=== PATIENT | male | born 1975 | race Caucasian/White ===

== ENCOUNTER 2021-09-18 06:33 | Outpatient (CLI) | payer BC, OTHER, SELFPAY ==
--- NOTE | 2021-09-18 06:48 | CT_ITS ---
STUDY: CT MAXILLOFACIAL SINUSES REASON FOR EXAM: Male, 46 years old. CHRONIC SINUSITIS RADIATION DOSAGE (If Supplied By Facility): CTDIvol = ( 33.06 ) mGy, DLP = ( 788.4 ) mGycm TECHNIQUE: The patient was scanned in a multi detector CT scanner. High resolution axial imaging was performed without the administration of intravenous contrast material. Sagittal and coronal images were reconstructed. Individualized dose optimization techniques were used for this CT. COMPARISON: None. FINDINGS: FRONTAL SINUSES: Normal aeration, without mucosal inflammatory disease. ETHMOIDAL SINUSES: Normal aeration, without mucosal inflammatory disease. MAXILLARY SINUSES: Mucosal thickening in the seth of the left maxillary sinus consistent with chronic sinusitis. SPHENOIDAL SINUSES: Normal aeration, without mucosal inflammatory disease. There is patency of the bilateral maxillary infundibuli with normal uncinate processes, ethmoid bullae, and hiatus semilunaris. Normal bilateral middle turbinates. Normal bilateral inferior turbinates. There is a right sided nasal septal deviation, but without a nasal septal spur. There is patency of the bilateral nasal airways. There is a healed fracture of the floor of the left orbit with a wire within the anterior wall of the maxillary sinus. More posteriorly, there is a healed depressed fracture of the floor of the left orbit with inferior extension of the intraorbital fat into the roof of the maxillary sinus but no entrapment of the inferior rectus muscle. CT/Sinus/Facial Bone IMPRESSION: 1. Chronic left maxillary sinusitis. 2. Patent ostiomeatal units bilaterally. 3. Deviation of nasal septum to the right. 4. Healed fracture of the floor of the left orbit with extension inferior to the normal level of the orbital floor with extension of intraorbital fat towards the roof of the maxillary sinus. Electronically Signed: Ehsan Falcon MD at 8:22 EST ,
== END 2021-09-18 23:59 | disposition home or self-care (01) ==
LOC: CT 06:44
PROVIDERS: PCP Family Medicine; Referring Provider Otolaryngology; Visit Provider Otolaryngology
DX: J32.0 Chronic maxillary sinusitis (principal)
CPT/HCPCS: 70486